=== PATIENT | male | born 1950 | race African-American/Black ===

== ENCOUNTER 2021-11-09 15:46 | Observation (INO) ==
[2021-11-09] MEDS ORDERED: LORazepam 2 MG/1 ML VIAL IM STA ×3 (17:37→18:33)
[2021-11-09] MEDS ORDERED: diphenhydrAMINE 50 MG/1 ML VIAL IM STA (17:37)
[2021-11-09] MEDS ORDERED: HYDROmorphone 1 MG/1 ML SYRINGE IM STA (19:34)
[2021-11-09] MEDS ORDERED: HYDROmorphone 1 MG/1 ML SYRINGE IV STA (19:42)
[2021-11-09 19:56] LABS: Basophils % 0.2 % (0.0-0.8); Eosinophils % 0.7 % (0.00-10.9); Hematocrit 42.7 VOL% (42.0-52.0); Hemoglobin 13.8 GM/DL (14.0-18.0); Immature Granulocytes % 0.3 %; Immature Granulocytes Absolute 0.02 #; Lymphocytes # 1.3 10*3/uL (1.4-4.0); Lymphocytes % 21.1 % (21.2-54.2); Mean Corpuscular HGB Conc 32.3 GM/DL (32-36); Mean Corpuscular Volume 76.4 FL (87-102); Mean Platelet Volume 9.5 FL (9.6-12.0); Monocytes # 0.5 10*3/uL (0.11-0.8); Monocytes % 8.2 % (1.7-12.7); Neutrophils % 69.5 % (38.7-73.9); Platelet Count 228 T/CUMM (130-400); Red Blood Count 5.59 MC/CUMM (3.8-5.5); Red Cell Distribution Width 17.9 % (9.3-17.3); White Blood Count 6.1 T/CUMM (4-12)
[2021-11-09 20:18] LABS: Albumin 3.8 G/DL (3.4-5.0); Bilirubin,Total 0.4 MG/DL (0.20-1.00); CKMB % 1.41 %; Calcium 9.4 MG/DL (8.5-10.1); Osmolality,Calculated 279.3 MOS/KG (273-304); Potassium 3.2 MMOL/L (3.5-5.1); Total Protein 8.3 G/DL (6.4-8.2)
[2021-11-09] MEDS ORDERED: ONDANSETRON 4 MG/2 ML VIAL IV PRN (21:21)
[2021-11-09] MEDS ORDERED: guaiFENesin/DM ER 600-30 MG TABLET PO PRN (21:21)
[2021-11-09] MEDS ORDERED: ZALEPLON 5 MG CAPSULE PO PRN (21:21)
[2021-11-09] MEDS ORDERED: NICOTINE 21 MG/24 HR PATCH TRANSDERM PRN (21:21)
[2021-11-09] MEDS ORDERED: hydrALAZINE 20 MG/1 ML VIAL IV PRN (21:21)
[2021-11-09] MEDS ORDERED: BISACODYL 5 MG TABLET PO PRN (21:21)
[2021-11-09] MEDS ORDERED: diphenhydrAMINE CAP 25 MG CAPSULE PO PRN (21:21)
[2021-11-09] MEDS ORDERED: ACETAMINOPHEN 325 MG TABLET PO PRN (21:21)
[2021-11-09] MEDS ORDERED: GLUCAGON 1 MG VIAL IM PRN (21:21)
[2021-11-09] MEDS ORDERED: DEXTROSE 10% 250 ML BAG IV PRN (21:21)
[2021-11-09] MEDS: HYDROmorphone 1 MG/1 ML SYRINGE IV SCH (23:49)
[2021-11-09] MEDS: POTASSIUM CHLORIDE INJ 40 MEQ in SODIUM CHLORIDE 0.45% 1,000 ML IV SCH (23:52)
[2021-11-10 00:30] LABS: Barbiturates Screen,Urine Negative (Negative); Benzodiazepines Screen,Urine Negative (Negative); Cannabinoid Screen,Urine Negative (Negative); Opiate Screen,Urine Positive (Negative); Phencyclidine Screen,Urine Negative (Negative)
[2021-11-10] MEDS: HYDROmorphone 1 MG/1 ML SYRINGE IV SCH ×2 (03:38→11:56)
[2021-11-10 03:57] LABS: Basophils % 0.4 % (0.0-0.8); Eosinophils # 0.1 10*3/uL (0.0-0.87); Eosinophils % 1.9 % (0.00-10.9); Hematocrit 39.5 VOL% (42.0-52.0); Hemoglobin 12.7 GM/DL (14.0-18.0); Immature Granulocytes % 0.2 %; Immature Granulocytes Absolute 0.01 #; Lymphocytes # 1.7 10*3/uL (1.4-4.0); Lymphocytes % 32.8 % (21.2-54.2); Mean Corpuscular HGB Conc 32.2 GM/DL (32-36); Mean Corpuscular Volume 77.8 FL (87-102); Mean Platelet Volume 9.3 FL (9.6-12.0); Monocytes # 0.5 10*3/uL (0.11-0.8); Neutrophils % 54.7 % (38.7-73.9); Platelet Count 169 T/CUMM (130-400); Red Blood Count 5.08 MC/CUMM (3.8-5.5); Red Cell Distribution Width 17.2 % (9.3-17.3); White Blood Count 5.2 T/CUMM (4-12)
[2021-11-10 04:22] LABS: Calcium 8.8 MG/DL (8.5-10.1); Osmolality,Calculated 278.3 MOS/KG (273-304); Potassium 3.4 MMOL/L (3.5-5.1)
[2021-11-10] MEDS ORDERED: POTASSIUM CHLORIDE 20 MEQ TABLET PO ONE (07:54)
[2021-11-10] MEDS: lisinopriL 20 MG TABLET PO SCH (09:51)
[2021-11-10] MEDS: ENOXAPARIN 40 MG/0.4 ML SYRINGE SUBCUT SCH (09:51)
[2021-11-10] MEDS: PANTOPRAZOLE 40 MG TABLET PO SCH (09:51)
[2021-11-10] MEDS: hydroCHLOROthiazide 25 MG TABLET PO SCH (09:51)
[2021-11-10] MEDS ORDERED: cloNIDine 0.1 MG TABLET PO PRN (10:12)
[2021-11-10] MEDS ORDERED: METHOCARBAMOL 750 MG TABLET PO PRN (10:12)
[2021-11-10] MEDS: POTASSIUM CHLORIDE INJ 40 MEQ in SODIUM CHLORIDE 0.45% 1,000 ML IV SCH ×2 (12:09→20:49)
[2021-11-10] MEDS: chlordiazePOXIDE 25 MG CAPSULE PO SCH ×2 (12:16→18:14)
[2021-11-10] MEDS: HydrOXYzine PAMOATE 25 MG CAPSULE PO PRN ×2 (14:07→23:15)
[2021-11-10] MEDS: NICOTINE 21 MG/24 HR PATCH TRANSDERM SCH (14:07)
[2021-11-10] MEDS: LORazepam 2 MG/1 ML VIAL IV PRN ×2 (14:53→23:14)
[2021-11-10] MEDS ORDERED: oxyCODONE/ACETAMINOPHEN 5-325 MG TABLET PO PRN (15:59)
[2021-11-10] MEDS ORDERED: oxyCODONE/ACETAMINOPHEN 5-325 MG TABLET PO ONE (15:59)
[2021-11-11] MEDS: POTASSIUM CHLORIDE INJ 40 MEQ in SODIUM CHLORIDE 0.45% 1,000 ML IV SCH (03:05)
[2021-11-11] MEDS: chlordiazePOXIDE 25 MG CAPSULE PO SCH ×2 (03:06→12:58)
[2021-11-11] MEDS ORDERED: ASCORBIC ACID 500 MG TABLET PO SCH (09:00)
[2021-11-11] MEDS ORDERED: CHOLECALCIFEROL 1,000 UNIT TABLET PO SCH (09:00)
[2021-11-11 09:04] LABS: Calcium 9.6 MG/DL (8.5-10.1); Osmolality,Calculated 273.7 MOS/KG (273-304); Potassium 4.1 MMOL/L (3.5-5.1)
[2021-11-11] MEDS: hydroCHLOROthiazide 25 MG TABLET PO SCH (09:45)
[2021-11-11] MEDS: NICOTINE 21 MG/24 HR PATCH TRANSDERM SCH (09:45)
[2021-11-11] MEDS: PANTOPRAZOLE 40 MG TABLET PO SCH (09:45)
[2021-11-11] MEDS: lisinopriL 20 MG TABLET PO SCH (09:45)
[2021-11-11] MEDS: ENOXAPARIN 40 MG/0.4 ML SYRINGE SUBCUT SCH (09:45)
[2021-11-11 14:40] VITALS: BP 124/85
[2021-11-12] MEDS ORDERED: FERROUS SULFATE 325 MG TABLET PO SCH (09:00)
== END 2021-11-11 14:35 | disposition home or self-care (01) ==
LOC: N.ED 15:46 → N.EDINP 15:46 → SUATTDRO 11-10 00:11 → N.3E 11-10 12:57
PROVIDERS: ADMIT Internal Medicine; ATTEND Internal Medicine